=== PATIENT | male | born 2005 | race Two or more races ===

== ENCOUNTER 2023-08-07 15:28 | Inpatient (IN) | payer OTHER ==
[~2023-08-07] VITALS: Ht 172.7 cm; Wt 58.6 kg
[2023-08-07 17:39] LABS: HEMATOCRIT 49.9 % (39.0-48.0); HEMOGLOBIN 16.8 g/dL (13-16.00); MEAN CELL VOLUME 86.2 fL (80.0-100.00); MEAN CORPUSCULAR HGB CONC 33.6 g/dl (32.0-36.0); PLATELET COUNT 264 K/uL (150-450); RED BLOOD COUNT 5.79 M/uL (4.00-6.00); RED CELL DISTRIBUTION WIDTH 13.9 % (11.5-14.5)
[2023-08-07 17:40] LABS: PH,URINE 5.5 (5.0-8.0); URINE APPEARANCE Clear; URINE BILIRRUBIN Negative (NEGATIVE); URINE BLOOD Negative; URINE COLOR Yellow; URINE GLUCOSE Negative (NEGATIVE); URINE LEUKOCYTE Negative; URINE NITRATE Negative; URINE PROTEIN Negative (NEGATIVE); URINE UROBILINOGEN 0.2 E.U./dl; URINE WBC 5.5 uL (0.0-23.2)
[2023-08-07 17:43] LABS: URINE EPITHELIAL CELLS 0.7 uL (0.0-38.8); URINE RBC 0.8 uL (0.0-20.8)
[2023-08-07 17:44] LABS: ERYTHROCYTE SEDIMENTATION RATE 7 mm/hr
[2023-08-07 17:58] LABS: ALBUMIN 3.7 gm/dL (3.4-5.0); ALKALINE PHOSPHATASE 94 U/L (50-136); ALT/SGPT 27 U/L (12-78); ANION GAP 7 (10.0-20.0); AST/SGOT 12 U/L (15-37); BILIRUBIN TOTAL 0.68 mg/dL (0.3-1.2); BLOOD UREA NITROGEN 15 mg/dL (7-18); BUN CREA RATIO 15 (7.0-25.0); CALCIUM 9.4 mg/dL (8.5-10.1); CARBON DIOXIDE 30 mEq/L (21-32); CHLORIDE 106 mmol/L (98-107); CREATININE SERUM 1.03 mg/dL (0.70-1.30); GFR 93.03; GLOBULINA 4.1 G/DL (2.4-3.5); GLUCOSE FASTING 93 mg/dL (65-100); OSMOLALITY SERUM 278 MOSM/KG (275-295); POTASSIUM 4.31 mEq/L (3.5-5.1); SODIUM 139 mmol/L (136-145); TOTAL PROTEIN 7.8 gm/dL (6.4-8.2)
[2023-08-07 18:07] LABS: AMYLASE 176 U/L (25-115); C-REACTIVE PROTEIN < 0.29 MG/DL (0.00-0.29); LIPASE 267 U/L (13-75)
[2023-08-07 22:26] LABS: ob POSITIVE (NEGATIVE)
[2023-08-08 07:11] LABS: CHOL HDL RATIO 3.3 (0-5.0); CHOLESTEROL 87 mg/dL (0-200); HDL 26 mg/dl (40-60); LDL 45 mg/dl (0-130); TRIGLYCERIDES 82 mg/dL (0-150); VLDL 16 (0-39)
[2023-08-08 07:14] LABS: BILIRUBIN TOTAL 0.96 mg/dL (0.3-1.2); BILIRUBIN,CONJUGATED 0.23 mg/dL (0.0-0.2); BILIRUBIN,UNCONJUGATED 0.73 mg/dL (0.0-0.6); CALCIUM 8.6 mg/dL (8.5-10.1); CREATININE SERUM 0.98 mg/dL (0.70-1.30); GFR 98.53; POTASSIUM 4.25 mEq/L (3.5-5.1)
[2023-08-08 07:20] LABS: C-REACTIVE PROTEIN < 0.29 MG/DL (0.00-0.29)
[2023-08-09 11:06] LABS: BILIRUBIN TOTAL 0.9 mg/dL (0.3-1.2); CALCIUM 8.4 mg/dL (8.5-10.1); CREATININE SERUM 0.85 mg/dL (0.70-1.30); GFR 116.12; GLOBULINA 3.1 G/DL (2.4-3.5); POTASSIUM 3.86 mEq/L (3.5-5.1); TOTAL PROTEIN 6.1 gm/dL (6.4-8.2)
[2023-08-11 07:14] LABS: AMYLASE 252 U/L (25-115)
[2023-08-11 07:19] LABS: ALBUMIN 2.9 gm/dL (3.4-5.0); ALKALINE PHOSPHATASE 74 U/L (50-136); ALT/SGPT 17 U/L (12-78); ANION GAP 9 (10.0-20.0); AST/SGOT 7 U/L (15-37); BLOOD UREA NITROGEN 6 mg/dL (7-18); BUN CREA RATIO 8 (7.0-25.0); CALCIUM 8.5 mg/dL (8.5-10.1); CARBON DIOXIDE 26 mEq/L (21-32); CHLORIDE 110 mmol/L (98-107); CREATININE SERUM 0.79 mg/dL (0.70-1.30); GFR 126.35; GLOBULINA 2.8 G/DL (2.4-3.5); GLUCOSE FASTING 99 mg/dL (65-100); OSMOLALITY SERUM 279 MOSM/KG (275-295); POTASSIUM 4.06 mEq/L (3.5-5.1); SODIUM 141 mmol/L (136-145); TOTAL PROTEIN 5.7 gm/dL (6.4-8.2)
[2023-08-11 07:30] LABS: C-REACTIVE PROTEIN < 0.29 MG/DL (0.00-0.29); LIPASE 598 U/L (13-75)
[2023-08-11 07:49] LABS: HEMOGLOBIN 14.3 g/dL (13-16.00); MEAN CORPUSCULAR HEMOGLOBIN 29.2 pg (27.00-32.0); PLATELET COUNT 248 K/uL (150-450); RED BLOOD COUNT 4.89 M/uL (4.00-6.00); RED CELL DISTRIBUTION WIDTH 13.2 % (11.5-14.5)
[2023-08-12 07:23] LABS: ALBUMIN 2.8 gm/dL (3.4-5.0); ALKALINE PHOSPHATASE 73 U/L (50-136); ALT/SGPT 15 U/L (12-78); ANION GAP 6 (10.0-20.0); AST/SGOT 6 U/L (15-37); BILIRUBIN TOTAL 0.55 mg/dL (0.3-1.2); BLOOD UREA NITROGEN 7 mg/dL (7-18); BUN CREA RATIO 7 (7.0-25.0); CALCIUM 8.6 mg/dL (8.5-10.1); CARBON DIOXIDE 28 mEq/L (21-32); CHLORIDE 109 mmol/L (98-107); CHOL HDL RATIO 2.2 (0-5.0); CHOLESTEROL 60 mg/dL (0-200); CREATININE SERUM 0.95 mg/dL (0.70-1.30); GFR 102.13; GLUCOSE FASTING 101 mg/dL (65-100); HDL 27 mg/dl (40-60); LDL 25 mg/dl (0-130); OSMOLALITY SERUM 276 MOSM/KG (275-295); POTASSIUM 4.25 mEq/L (3.5-5.1); SODIUM 139 mmol/L (136-145); TOTAL PROTEIN 5.8 gm/dL (6.4-8.2); TRIGLYCERIDES 38 mg/dL (0-150); VLDL 7 (0-39)
[2023-08-12 07:38] LABS: C-REACTIVE PROTEIN < 0.29 MG/DL (0.00-0.29)
[2023-08-13 09:30] LABS: AMYLASE 287 U/L (25-115)
[2023-08-13 09:32] LABS: LIPASE 697 U/L (13-75)
[2023-08-14 08:52] LABS: AMYLASE 229 U/L (25-115)
[2023-08-14 09:11] LABS: LIPASE 411 U/L (13-75)
== END 2023-08-14 10:20 | disposition home or self-care (01) | DRG 391 ==
LOC: ER 15:29 → EMR PED 15:59 → ER 15:59 → OB/GYN 20:48 → PED 08-12 07:48
PROVIDERS: Emergency Medicine Pediatric Emergency Medicine; Pediatrics; ADMIT Emergency Medicine; ATTEND Emergency Medicine
PROC: BW21YZZ Computerized Tomography (CT Scan) of Abdomen and Pelvis using Other Contrast (ICD-10-PCS; 2023-08-09)
PROC: BW40ZZZ Ultrasonography of Abdomen (ICD-10-PCS; principal; 2023-08-13)
DX: K52.9 Noninfective gastroenteritis and colitis, unspecified (principal); K85.90 Acute pancreatitis without necrosis or infection, unspecified